=== PATIENT | female | born 1955 | race African-American/Black ===

== ENCOUNTER 2019-04-27 12:41 | Emergency (ER) | payer OTHER ==
[~2019-04-27] VITALS: Ht 154.9 cm; Wt 77.1 kg
[2019-04-27 13:22] LABS: ABSOLUTE NEUTROPHILS 4.2 thou/uL (1.4-8.2); HEMATOCRIT 48.3 % (37.0-47.0); HEMOGLOBIN 16.5 gm/dL (12.0-15.0); LYMPHOCYTES 26.2 % (24.0-44.0); MCH 30.6 pg (26.0-34.0); MCHC 34.2 g/dL (28.0-37.0); MCV 89.3 fL (80.0-100.0); MONOCYTES 3.7 % (1.0-8.0); PLATELET COUNT 257 thou/uL (150-400); POLYS 68.1 % (36.0-66.0); RDW 14.3 % (10.5-14.5); WBC 6.2 thou/uL (4.0-11.0)
[2019-04-27 13:30] LABS: CALCIUM 10.3 mg/dL (8.5-10.1); POTASSIUM 4.1 mmol/L (3.5-5.1)
[2019-04-27 13:36] LABS: ALBUMIN 4.2 g/dL (3.4-5.0); TOTAL BILIRUBIN 0.5 mg/dL (<0.1-1.0); TOTAL PROTEIN 8.8 g/dL (6.4-8.2)
[2019-04-27] MEDS ORDERED: XANAX1 MG PO (15:11)
[2019-04-27] MEDS ORDERED: PAXIL10 MG PO (15:11)
[2019-04-27] MEDS ORDERED: METFORMIN HCL500 MG PO (15:11)
[2019-04-27] MEDS ORDERED: LISINOPRIL20 MG PO (15:12)
[2019-04-27 15:14] LABS: URINE BLOOD NEGATIVE (Negative); URINE CLARITY CLEAR; URINE COLOR YELLOW; URINE GLUCOSE-RANDOM* NEGATIVE (Negative); URINE KETONES TRACE (Negative); URINE LEUKOCYTES-REFLEX NEGATIVE (Negative); URINE NITRITE-REFLEX NEGATIVE (Negative); URINE PROTEIN (DIPSTICK) 3+ (Negative); URINE SPECIFIC GRAVITY >= 1.030 (1.005-1.035)
[2019-04-27 15:18] LABS: ICTOTEST (BILI CONFIRMATORY) Negative (Negative); URINE BILIRUBIN NEGATIVE (Negative)
[2019-04-27 15:21] LABS: AMP/METHAMP Negative (Negative); BARBITURATES Negative (Negative); BENZODIAZEPINES Negative (Negative); COCAINE Negative (Negative); METHADONE Negative (Negative); OPIATES Negative (Negative); PCP Negative (Negative)
[2019-04-27 15:26] LABS: SQUAMOUS >10 Many /LPF (0-3)
[2019-04-27 15:27] LABS: AMORPHOUS URATES Moderate /LPF (None Seen); BACTERIA-REFLEX 1-9 Few /HPF (None Seen); CASTS None Seen /LPF (None Seen); URINE RBC None Seen /HPF (0-2); URINE WBC-REFLEX 0-5 Rare /HPF (0-5)
[2019-04-27] MEDS ORDERED: VISTARIL 25 MG25 M1 PO (19:51)
[2019-04-27 20:53] VITALS: BP 147/88
--- NOTE | 2019-04-28 08:34 | EKG ---
[address] [address] ELECTROCARDIOGRAM REPORT Name: TRENT ARZATE [facility] [id number] Admission: 04/27/19 Attend Phys: Discharge: 04/27/19 Date of : 55 Report #: [id number] THIS REPORT FOR: //name// [facility] ED Test Date: 2019-04-27 Test Time: 13:16:19 Pat Name: TRENT ARZATE Department: Room: Gender: F Exchange Clerk: JOIE : 1955 Requested By: Taylor Abarca Order Number: [id number] MD: Moises Driver Measurements Intervals [place] Rate: 80 P: 69 GA: 165 QRS: -13 QRSD: 88 T: 51 QT: 393 QTc: 454 Interpretive Statements Sinus rhythm Abnormal R-wave progression, late transition No previous ECG available for comparison Electronically Signed On 04-28-2019 8:33:52 CDT by Moises Driver [email or web address] <ELECTRONICALLY SIGNED> By: Moises Driver MD 04/28/19 0833 1316 1316 MD DONITA Huggins
== END 2019-04-27 20:54 | disposition home or self-care (01) ==
LOC: ER 12:41
PROVIDERS: Nurse Practitioner Family
DX: F20.9 Schizophrenia, unspecified (principal); G47.00 Insomnia, unspecified; F41.9 Anxiety disorder, unspecified; F29 Unspecified psychosis not due to a substance or known physiological condition; F31.9 Bipolar disorder, unspecified; E11.9 Type 2 diabetes mellitus without complications; I10 Essential (primary) hypertension; F17.210 Nicotine dependence, cigarettes, uncomplicated; Z91.041 Radiographic dye allergy status; Z88.0 Allergy status to penicillin; Z88.5 Allergy status to narcotic agent

== ENCOUNTER 2020-04-03 16:32 | Inpatient (IN) | payer OTHER ==
[~2020-04-03] VITALS: Ht 154.9 cm; Wt 67.7 kg
[~2020-04-03 16:32] MED LIST: LISINOPRIL20 MG PO; METFORMIN HCL500 MG PO; PAXIL10 MG PO; VISTARIL 25 MG25 M1 PO; XANAX1 MG PO
[2020-04-03 16:40] VITALS: BP 129/71
--- NOTE | 2020-04-03 17:05 | NUR ---
REPORT RECEIVED FROM ELAINE FELICIANO WHO IS WITH [facility] AND IS PATIENT'S THERAPIST. ELAINE REPORTS THAT PATIENT IS CURRENTLY IN A PARTIAL HOSPITALIZATION PROGRAM FOR MOOD STABILTY, MEDICATION MGMT, THERAPY ETC. ELAINE REPORTS THAT PT WAS NOT ATTENDING THE PROGRAM SET UP AND PT CALLED IN TODAY REPORTING SHE IS SUICIDAL AND WANTS TO STAB HERSELF OR SLIT HER WRISTS. PAST SUICIDE ATTEMPTS. ELAINE REPORTS THAT PT'S MOTHER IS CURRENTLY IN THE HOSPITAL AND PT SISTER RECENTLY WELL BROTHER IN LAW WITHIN THE LAST 2 WKS. PT REPORTS SHE HAS NOT SLEPT IN SEVERAL DAYS AND HAS NOT TAKEN ANY MEDICATIONS FOR SEVERAL DAYS STATING SHE CANT FIND HER MEDS. ELAINE STATES IF ANY FURTHER QUESTIONS WE CAN CALL HER IMPLEMENTATION MANAGER AT [facility] AT [phone]. PT GIVES CONSENT TO CALL HER COUSIN JOSE BOONE [phone].
[2020-04-03 17:28] LABS: ABSOLUTE NEUTROPHILS 2.9 thou/uL (1.4-8.2); BASOPHILS 0.6 % (0.0-2.0); EOSINOPHILS 1.5 % (0.0-3.0); HEMATOCRIT 49.3 % (37.0-47.0); HEMOGLOBIN 16.6 gm/dL (12.0-15.0); LYMPHOCYTES 49.8 % (24.0-44.0); MCH 29.8 pg (26.0-34.0); MCHC 33.7 g/dL (28.0-37.0); MCV 88.5 fL (80.0-100.0); MONOCYTES 4.8 % (1.0-8.0); PLATELET COUNT 201 thou/uL (150-400); POLYS 43.3 % (36.0-66.0); RBC 5.57 mil/uL (4.20-5.00); RDW 14.8 % (10.5-14.5); WBC 6.7 thou/uL (4.0-11.0)
[2020-04-03 17:51] LABS: ALBUMIN 3.7 g/dL (3.4-5.0); ANION GAP 10 mmol/L (7-16); BUN 15 mg/dL (7-18); CALCIUM 9.6 mg/dL (8.5-10.1); CHLORIDE 102 mmol/L (98-107); CO2 25 mmol/L (21-32); CREATININE 0.8 mg/dL (0.6-1.0); GLUCOSE 120 mg/dL (74-106); POTASSIUM 3.9 mmol/L (3.5-5.1); SGOT 16 U/L (15-37); SGPT 21 U/L (30-65); SODIUM 137 mmol/L (136-145); TOTAL BILIRUBIN 0.4 mg/dL (0.2-1.0); TOTAL PROTEIN 8.2 g/dL (6.4-8.2)
[2020-04-03 17:56] LABS: URINE BILIRUBIN NEGATIVE (Negative); URINE BLOOD NEGATIVE (Negative); URINE CLARITY CLEAR; URINE COLOR YELLOW; URINE GLUCOSE-RANDOM* NEGATIVE (Negative); URINE KETONES NEGATIVE (Negative); URINE LEUKOCYTES-REFLEX NEGATIVE (Negative); URINE NITRITE-REFLEX NEGATIVE (Negative); URINE PROTEIN (DIPSTICK) NEGATIVE (Negative); URINE SPECIFIC GRAVITY <= 1.005 (1.005-1.035); URINE UROBILINOGEN 0.2 E.U./dl (0.2-1.0)
[2020-04-03 18:02] LABS: SALICYLATE 5.3 mg/dL (2.8-20.0)
[2020-04-03 18:03] LABS: AMP/METHAMP Negative (Negative); BARBITURATES Negative (Negative); BENZODIAZEPINES POSITIVE (Negative); COCAINE Negative (Negative); METHADONE Negative (Negative); OPIATES Negative (Negative); PCP Negative (Negative)
--- NOTE | 2020-04-03 20:20 | NUR ---
PT STATING SHE WANTS TO LEAVE SHE'S ANXIOUS AND FEARED THAT SHE'S BEING DISRESPECTED IN THE HOSPITAL. PT UNABLE TO GIVE DETAILED EXPLANATION ON ACTS OF DISRESPECT. MACHINE STEMMER MADE PT AWARE THAT SHE'S UNABLE TO LEAVE AT THIS TIME A RESULT OF THOUGHTS OF WANTING TO HURTSELF, PT ITCHING AGGRESSIVELY ON LEFT HAND, STATING "I'M ANXIOUS AND CAN'T SEEM TO CALM MYSELF". ERP NOTIFIED AND NEW ORDER ATIVAN 1MG PO GIVEN. SITTER AT BEDSIDE.
--- NOTE | 2020-04-03 20:22 | NUR ---
PT CALLED INQUIRING ABOUT HER HOSPITALIZATION, FOREST FIRE[employer]HTER UPDATED PT THAT RESULT ON COVID TEST IS STILL PENDING AND WHEN RECIEVED, PT WILL BE ADMITTED ON [facility]. PT LEYDA, REQUESTED FOR FOOD, LUNCH BOX GIVEN.
--- NOTE | 2020-04-04 01:07 | NUR ---
65 y.o. female admitted to the unit this date with passive/vague suicidal ideation. Patient reports Hx of Bipolar DO, Schizophrenia, Depression, and PTSD. Also has Hx of HTN, and diabetes. Calm and cooperative with admission. States her sister and her brother in law both in the past couple of weeks. States she hasn't slept in 10 days and has started to hallucinate. Has fleeting thoughts that she just doesn't want to go on anymore, and would be better off . Denies any plan or intent. Says she has therapy sessions via telehealth through [employer]. Would like PCP and family member notified of her admission. Has superfiscial scratches on the backs of both hands from a "nervous habit". Takes Xanax and Paxil. Main goal is to get sleep in a safe place.
[2020-04-04 01:14] VITALS: BP 145/73
[2020-04-04 07:53] VITALS: BP 141/66
--- NOTE | 2020-04-04 08:32 | EKG ---
[facility] [place] [address] ELECTROCARDIOGRAM REPORT Name: TRENT ARZATE Room #: [facility] ADM IN M.R.#: [id number] Admission: 04/03/20 Attend Phys: Gianfranco Acosta DO Discharge: Date of : 55 Report #: [id number] THIS REPORT FOR: cc: DENIA LUI MD, TRICIA MD Lundgren,Andrea Kaufman MD [facility] ~ THIS REPORT FOR: //name// [facility] ED Test Date: 2020-04-03 Test Time: 17:35:13 Pat Name: TRENT ARZATE Department: Room: [facility] Gender: F Studio Engineer: : 1955 Requested By: Willy Maldonado Order Number: [id number] MD: Andrea Porras Measurements Intervals [place] Rate: 82 P: 54 MA: 175 QRS: -23 QRSD: 84 T: 30 QT: 379 QTc: 443 Interpretive Statements Sinus rhythm Borderline left axis deviation Compared to ECG 04/27/2019 13:16:19 No significant changes Electronically Signed On 04-04-2020 8:32:12 CDT by Andrea Porras [email or web address] <ELECTRONICALLY SIGNED> By: Andrea Porras MD, [facility] 04/04/20 0832 1735 1735 Andrea Porras MD, [facility] /EPI
[2020-04-04 10:21] VITALS: BP 141/66
--- NOTE | 2020-04-04 12:14 | NUR ---
1155 RESUMMED CARE FROM OVERNIGHT SHIFT THIS AM, PATIENT HAS ANXIETY AND DEPRESSION DUE TO SEVERAL DEATHS IN HER FAMILY. PATIENT DENIES SI/HI/AH/VH AT PRESENT. PATIENT HAS SCRATCHES ON BOTH TOP OF HANDS, PATIENT STATES WHEN SHE GETS ANXIOUS SHE SCRATCHES HERSELF. PATIENTS ABDOMEN SOFT ROUND BOWEL SOUNDS PRESENT. PATIENTS LUNGS CLEAR PATIENT STATES SHE MADE THE SI STATEMENTS DUE TO SEVERAL FAMILY DEATHS IN 2 WEEK SPAN. PATIENT IS WORRIED ABOUT HER MOM WHO HAD A STROKE AND HEART ATTACK. PATIENT IS VERY PLEASANT MEET WITH ROLAN HOLLY THIS AM AND DIETARY. PATIENT DID ATTEND GROUP AND IS QUIET AND COOPERATIVE WILL CONINUE TO MONITOR PATIENT FOR SAFETY AND BEHAVIORS.
[2020-04-04 19:17] VITALS: BP 106/62
--- NOTE | 2020-04-04 19:21 | NUR ---
Care of patient assumed at 1915. Patient is sitting calmly in day room. Pleasant and cooperative. HS, LS, BS normal. Denies pain. Denies SI/HI. A/O x 4. Says she realizes she doesn't really belong here, and that the millieu is just increasing her anxiety. Dressing to back of left hand changed (healing well). Heads to her room at 2200 and requests ANAYA Harris. This nurse tells her that it will be just a bit as an admission is in progress. Patient accepts this and goes to her room. At 2300, when this nurse goes to see if she still needs it, she is sleeping.
[2020-04-05 06:00] LABS: HEMATOCRIT 44.1 % (37.0-47.0); HEMOGLOBIN 14.8 gm/dL (12.0-15.0)
[2020-04-05 07:17] VITALS: BP 142/72
[2020-04-05 10:44] VITALS: BP 142/72
--- NOTE | 2020-04-05 10:49 | NUR ---
LINDA received a vm from Hanane Bernal, therapist with [facility], asking SW to contact her before pt is due to discharge to discuss care. LINDA contacted Hanane who told LINDA that she sent pt to the hospital because pt had a plan and intent on suicide; she was to utilize knives and she said pt had knives in her hand. LINDA explained that [facility] did not receive affidavits from her nor the police and so did not have grounds to deem her a safety risk at the time of admission. Hanane explained that she spoke to ED staff about her affidavit and was told they would call her back if they needed it. They never did. LINDA advised that any time she asks a patient to be admitted to send an affidavit. LINDA explained that at this time pt does not pose as suicidal. Hanane confirmed that pt has experienced 2 family deaths and her mother is very ill at this time. Pt attends PHP program with [facility]. Her first group session is tomorrow at 1230 and then her therapy appt is at 1430. Hanane said she will email Dr. Alexander that pt needs a psych appt. She also mentioned pt does not like seeing Dr. Alexander because he will not prescibe xanax. LINDA provided an update to Dr. Acosta concerning pt.
--- NOTE | 2020-04-05 11:33 | NUR ---
SW D/C NOTE SW faxed discharge docs to [facility]. No other needs for SW team to address at this time.
--- NOTE | 2020-04-05 13:29 | NUR ---
DISCHARGE INSTRUCTIONS REVIEWED WITH PATIENT INCLUDING F/U RECCOMDATIONS,DC MEDICATIONS AND RX CALLED TO PHARMACY BY DR. GIPSON. PT STATES UNDERSTANDING AND DENIES QUESTIONS/CONCERNS AT TIME OF DC. REQUESTED AND RECEIVED XANAX 1MG PO PRN AT APPROX. 1145 PRIOR TO DC RATING ANXIETY 7/10 D/T PENDING DC. DENIES C/O PAIN/DISCOMFORT AT TIME OF DC. DENIES SI/SH/HI. [facility] APPROX [facility]20 [facility] AT TIME OF DC TO [facility] VALU[employer]LES ENVELOPE X2 AT SECURITY PRIOR TO BOARDING TAXI ARRANGED BY FOR DC.
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
== END 2020-04-05 13:23 | disposition home or self-care (01) | DRG 881 ==
LOC: ER 16:32 → SBH 23:09 → EROBS 23:09 → SBH 23:47
PROVIDERS: Emergency Medicine; ADMIT Psychiatry & Neurology Psychiatry; ATTEND Psychiatry & Neurology Psychiatry
DX: F32.9 Major depressive disorder, single episode, unspecified (principal); R45.851 Suicidal ideations; F41.9 Anxiety disorder, unspecified; E11.9 Type 2 diabetes mellitus without complications; I10 Essential (primary) hypertension; Z60.2 Problems related to living alone; F43.10 Post-traumatic stress disorder, unspecified; F20.0 Paranoid schizophrenia; F43.21 Adjustment disorder with depressed mood; R45.850 Homicidal ideations; Z20.828 Contact with and (suspected) exposure to other viral communicable diseases; Z88.0 Allergy status to penicillin; Z88.6 Allergy status to analgesic agent; Z91.041 Radiographic dye allergy status; Z82.49 Family history of ischemic heart disease and other diseases of the circulatory system; Z83.3 Family history of diabetes mellitus
CPT/HCPCS: 10880

== ENCOUNTER 2020-08-09 12:38 | Emergency (ER) | payer OTHER ==
[~2020-08-09] VITALS: Ht 154.9 cm; Wt 68.0 kg
[~2020-08-09 12:38] MED LIST changes: -LISINOPRIL20 MG PO; +ZESTRIL40 MG PO
[2020-08-09 12:40] VITALS: BP 215/126
[2020-08-09] MEDS ORDERED: ATORVASTATIN CA20 MG PO (13:03)
[2020-08-09] MEDS ORDERED: ALPRAZOLAM2 MG PO (13:03)
[2020-08-09 14:39] LABS: ABSOLUTE NEUTROPHILS 3.1 thou/uL (1.4-8.2); BASOPHILS 0.5 % (0.0-2.0); HEMATOCRIT 41.4 % (37.0-47.0); HEMOGLOBIN 14.2 gm/dL (12.0-15.0); LYMPHOCYTES 50.1 % (24.0-44.0); MCH 30.8 pg (26.0-34.0); MCHC 34.2 g/dL (28.0-37.0); MCV 90.1 fL (80.0-100.0); MONOCYTES 4.4 % (1.0-8.0); RDW 14.6 % (10.5-14.5); WBC 7.3 thou/uL (4.0-11.0)
[2020-08-09 14:48] LABS: ANION GAP 8 mmol/L (7-16); BUN 10 mg/dL (7-18); CALCIUM 9.5 mg/dL (8.5-10.1); CHLORIDE 104 mmol/L (98-107); CO2 30 mmol/L (21-32); CREATININE 0.7 mg/dL (0.6-1.0); GLUCOSE 102 mg/dL (74-106); POTASSIUM 3.6 mmol/L (3.5-5.1); SODIUM 142 mmol/L (136-145)
[2020-08-09 14:53] LABS: ALBUMIN 3.5 g/dL (3.4-5.0); SALICYLATE < 2.8 mg/dL (2.8-20.0); SGOT 14 U/L (15-37); SGPT 26 U/L (30-65); TOTAL BILIRUBIN 0.4 mg/dL (0.2-1.0); TOTAL PROTEIN 7.3 g/dL (6.4-8.2)
[2020-08-09 15:00] LABS: PLATELET COUNT 206 thou/uL (150-400)
[2020-08-10 07:56] VITALS: BP 140/78
[2020-08-10] MEDS ORDERED: ZYPREXA 5 MG TAB5 MG PO (11:40)
[2020-08-10] MEDS ORDERED: METFORMIN HCL500 MG PO (12:12)
== END 2020-08-10 07:55 ==
LOC: ER 12:38 → EROBS 17:08 → ER 08-10 07:55
PROVIDERS: Physician Assistant
DX: F32.9 Major depressive disorder, single episode, unspecified (principal); F20.9 Schizophrenia, unspecified; I10 Essential (primary) hypertension; E11.9 Type 2 diabetes mellitus without complications; F17.210 Nicotine dependence, cigarettes, uncomplicated; Z79.899 Other long term (current) drug therapy; Z88.0 Allergy status to penicillin; Z88.5 Allergy status to narcotic agent; Z91.041 Radiographic dye allergy status

== ENCOUNTER 2020-08-09 15:16 | Inpatient (IN) | payer OTHER ==
[~2020-08-09] VITALS: Ht 154.9 cm; Wt 72.7 kg
[~2020-08-09 15:16] MED LIST changes: +ALPRAZOLAM2 MG PO; +ATORVASTATIN CA20 MG PO
[2020-08-10 10:15] VITALS: BP 126/71
--- NOTE | 2020-08-10 11:09 | NUR ---
PT. ARRIVED ON THE UNIT ABOUT 0700 THIS MORNING. SHE WAS PLEASANT AND COOPERATIVE WITH ADMISSION. SHE STATES SHE IS DIABETIC AND ON A CARB CONTROLLED DIET. WILL GET BLOOD SUGARS WE CAN. SHE STATES SHE IS UNCERTAIN WHY SHE IS HERE. SHE DID MENTION OTHERS WAS AFRAID OF HER BEHAVIORS AND MAY HARM HERSELF. SHE DENIES THIS. SHE DOES STATE SHE HAS LOST A [id number] AND SISTER RECENTLY. SHE IS UPSET WITH THEIR PASSING. SHE STATES SHE HAD A APPENDETOMY ABOUT 4 YEARS AGO, HYSTERECTOMY >10 YEARS AGO A BREST REDUCTION ABOUT 10 YEARS AGO. SHE STATES SHE WAS ADMITTED TO RESEARCH PSYCH. IN THE PAST. SHE DENIES HAVING HOBBIES OTHER THAN WATCHING YV AND WORKING WITH PLANTS.
[2020-08-10] MEDS ORDERED: ZYPREXA 5 MG TAB5 MG PO (11:40)
[2020-08-10] MEDS ORDERED: METFORMIN HCL500 MG PO (12:12)
--- NOTE | 2020-08-10 17:31 | NUR ---
LINDA was able to speak with Pt's skilled nursing case manager, Rosalee Francis [phone]. Rosalee was informed of the recommendation for IOP for the Pt. Rosalee stated she would send and internal referral for the Pt to begin the program. Rosalee informed the Pt reported not eating or sleeping in the last week or so. Also the Pt recently loss her sister. Rosalee confirmed the Pt is in therapy with Deo Vargas ( [phone]) and sees Dr. Charlie Bonilla for psychiatry. LINDA will continue to follow
--- NOTE | 2020-08-10 17:36 | NUR ---
DEEPAK spoke with Cecelia Lyn, , at [facility] program. Cecelia informed the Pt would need to call on Thursday (08/14/2020) to complete the intake assessment. Deepak attempted to schedule a follow up appt with Dr. Bonilla's office. DEEPAK was informed Pt would need to call after d/c and schedule a follow up appt. Pt meets with her Therapist Deo Hankins on 08/14/2020 via phone call. Pt scheduled for d/c 08/13/2020 @ 1300. Pt will be transported home via taxi
[2020-08-10 19:45] VITALS: BP 148/68
--- NOTE | 2020-08-11 05:31 | NUR ---
ASSUMED CARE OF PT AT 1900. PT IS A/O X4 AND IS UP AD TE. PLEASANT AND COOPERATIVE WITH ALL CARES. STATES SHE IS "READY TO GET OUT OF HERE ALREADY". DENIES ANY PAIN OR DISCOMFORT. ALSO DENIES ANY SI,HI,AVH. NO EMOTIONAL OUTBURSTS NOTED. PT IS CURRENTLY LYING IN HER BED AND APPEARS TO BE SLEEPING. VSS. AFEBRILE. WILL CONTINUE TO MONITOR.
[2020-08-11 07:45] VITALS: BP 136/74
[2020-08-11 20:20] VITALS: BP 147/83
--- NOTE | 2020-08-11 20:32 | NUR ---
Alert and orientated X 4. Denies SI/HI. Sad, flat affect. Ambulates with regular, steady gait. Breath sounds clear. Reg HR auscultated. Color pink with brisk capillary refill and palpable peripheral pulses. Independent with voiding. Active bowel sounds over soft, rounded abdomen. No issues t/o day--just wants to go home.
--- NOTE | 2020-08-12 04:37 | NUR ---
ASSUMED CARE OF PT AT 1900. PT IS A/O X4 AND IS UP AD TE. PLEASANT AND COOPERATIVE. DENIES SI/HI/AVH. VSS. AT THIS TIME PT IS LYING IN HER BED AND APPEARS TO BE SLEEPING. WILL CONTINUE TO MONITOR.
[2020-08-12 11:26] VITALS: BP 146/67
--- NOTE | 2020-08-12 14:14 | NUR ---
PATIENT CARE ASSUMED AT 0700 - ALERT AND ORIENTED X 4 - IN DINING [place] MOST OF THE DAY. MAKES NEEDS KNOWN. STATED HAD SEVERAL LOOSE BOWEL MOVEMENTS YESTERDAY AND CALLED DR. WOODS TO PLACE IMMODIUM PRN. PATIENT HAS NOT HAD ANY TODAY. MEDICATION COMPLIANT. STATED SLEPT WELL NO THOUGHTS OF S/I CURRENTLY. FEELS MEDICATIONS HAS BEEN BENEFICIAL. RETIRED TO HER ROOM AFTER LUNCH AND RESTED.
[2020-08-12 19:59] VITALS: BP 151/70
[2020-08-12 21:15] VITALS: BP 151/70
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
[2020-08-13 07:47] VITALS: BP 142/70
[2020-08-13 10:56] VITALS: BP 142/70
--- NOTE | 2020-08-13 11:03 | NUR ---
ASSUMED CARE AT 0700 TODAY. PT. PLEASANT AND COOPERATIVE WITH STAFF/PEERS. SHE TOOK HER MEDICATIONS WHOLE WITHOUT PROBLEMS NOTED. SHE IS EATING WELL WITHOUT PROBLEMS NOTED. SHE IS TO D/C TODAY AT 1300. SHE STATES SHE IS READY. HER BELONGINGS HAVE BEEN GATHERED.
[2020-08-13] MEDS ORDERED: ZYPREXA 5 MG TAB5 M2 PO (12:32)
[2020-08-13] MEDS ORDERED: PAXIL 20 MG TAB20 M1 PO (12:32)
[2020-08-13] MEDS ORDERED: GLUCOPHAGE1000 MG PO (12:34)
--- NOTE | 2020-08-14 23:03 | H ---
[facility] [address] [place] [address] HISTORY AND PHYSICAL Name: TRENT ARZATE Room #: 526B-B DIS IN M.R.#: [id number] Admission: 08/10/20 Attend Phys: Gianfranco Acosta DO Discharge: 08/13/20 Date of : 55 Report #: [id number] THIS REPORT FOR: cc: DENIA LUI MD, TRICIA MD Kerstein,Gianfranco Kaufman DO ~ DATE OF SERVICE: 08/10/2020 INITIAL PSYCHIATRIC EVALUATION ATTENDING PSYCHIATRIST: Gianfranco Acosta DO. RESEARCH DIRECTOR: Roly Evans MD REASON FOR ADMISSION: The patient was brought in by law enforcement from [place], [place]. HISTORY OF PRESENT ILLNESS: Apparently, they were dispatched to her address in regards to alleged suicidal behavior. Upon arrival, they made contact with the patient, who stated the following: She had been up for 3 days. She has not been eating. She lost her sister and ehyoexu-jf-vac and she is struggling. She has been diagnosed with bipolar, schizophrenia, PTSD. She has a therapist and a doctor with [facility]. She lives alone and she does not want to reach out to her family because they do not help her. The holidays are hard for her and she sees why people commit suicide. When she is having an episode, she scratches her hands, which causes injury and she walks from room to room and she hears voices. She reached out for help because it is better than "picking me up from the ground." The patient gestured towards the balcony window. During my conversation with her, she appeared to be calm and cooperative. The patient's responses to my questions were delayed, appeared to be slightly confused. The patient further stated she feels like the brandon are closing in and her mind goes like a radio. She does not want us to find her . She was transported by the medics to [facility]. This patient is known to me from prior psychiatric admission here at [facility] back in 03/2020. At that time, circumstances were a little bit different where she had suicidal behaviors. She had a telephone interview with her therapist from [facility] and they requested a welfare check. The patient was found compulsively scratching her left hand and cuts herself and at that time and always she allegedly reports she wants to stab herself or slit her wrists. The patient currently has a therapist named Deo, case liner Rosalee, has a psychiatrist, Dr. Seamus Bonilla in [facility]. Psychiatric includes overnight at [facility]. Prior to admission in 03/2020, she had not slept in a number of days. At that time, she was having visual and auditory hallucinations. She denies that today. Interestingly, in 03/2020, she reported her sister and gmdvqzy-yn-bnz of ruptured aneurysm. She is stating her sister and pqylmuh-nt-gzt again, so [facility] [address] [place] [address] HISTORY AND PHYSICAL Name: TRENT ARZATE Room #: 526B-B LILIANA IN Paul#: [id number] Admission: 08/10/20 Attend Phys: Gianfranco Acosta, DO Discharge: 08/13/20 Date of : 55 Report #: [id number] it is unclear to me at this point if it is the same sister and gheztka-hn-iqm or different. Her mother lives in the community in the area in [place]. Back in 03/2020, she was concerned her mother is on hospice. She is not now. The patient reports she is in grief. She is not suicidal, not depressed. ADDITIONAL PSYCHIATRIC HISTORY: Bipolar disorder. She calls herself bipolar, schizophrenic. I just think that she has been diagnosed separately PTSD, anxiety disorder, significant trauma history, but I believe this dates back to adolescence. MEDICAL PROBLEMS: Diabetes mellitus and hypertension. CURRENT MEDICATIONS: Paroxetine 20 mg daily, alprazolam 1 mg 3 times a day, metformin 500 mg b.i.d., lisinopril 40 mg daily. ALLERGIES: TO CONTRAST DYE, MORPHINE, PENICILLIN. SOCIAL HISTORY: Twelfth grade, did not graduate. She is on social security disability, does not sound like she has worked recently. Denied alcohol or recreational drug use. She smokes a half pack per day. She does not want to pursue cessation at this time, which I can understand. The patient has never been , no children. I do not believe she has a DPOA. REVIEW OF SYSTEMS: From the ER yesterday: CONSTITUTIONAL: Denies fever, chills, malaise, unexplained weight change. EYES: Denies eye pain, visual change or discharge. HENT: Denies hearing changes, ear drainage, infections, ear pain, neck pain or neck stiffness. RESPIRATORY: Denies cough, shortness of breath, hemoptysis or respiratory distress. CARDIOVASCULAR: Denies chest pain, chest pain with exertion or edema. GASTROINTESTINAL: Denies abdominal pain, nausea, vomiting or diarrhea. GENITOURINARY: Denies burning, frequency or dysuria. MUSCULOSKELETAL: Denies back pain, joint pain, muscle weakness or myalgias. SKIN: Denies rash. NEUROLOGIC: Denies weakness, loss of consciousness. PSYCHIATRIC: Reports grief, depression, sadness. Otherwise, 10-point review of systems negative. Weight 60.04 kilos. Physical exam grossly normal. LABORATORY DATA: Done in the ER: Sodium 140, potassium 3.6, chloride 104, bicarbonate 30, anion gap 8, BUN 10, creatinine 0.7, estimated GFR is around 100, calcium 9.5, total bilirubin is 0.4, AST 14, ALT 26, alkaline phosphatase 83, total protein 7.3, albumin 3.5. White count 7.3, H and H 14.2 and 41.4, [facility] [address] [place] [address] HISTORY AND PHYSICAL Name: TRENT ARZATE Room #: [address] [place] [address] IN ..#: [id number] Admission: 08/10/20 Attend Phys: Gianfranco Acosta, Discharge: 08/13/20 Date of : 55 Report #: [id number] platelet count 206. Differential only showed a high lymphocyte percentage of 50.1. COVID-19 is negative. Salicylate less than 2.8. ____ less than 2, alcohol less than 10. It looks like they just did a rhythm strip, no 12-lead. PHYSICAL EXAMINATION: VITAL SIGNS: Today, temperature 36.1, pulse 76, respirations 18, BP 126/71, O2 sat 96%. GENERAL: Normal gait and station, wearing a cap. BMI is 30.3. MENTAL STATUS EXAMINATION: This is a well-developed, black female, appearing stated age. Attention fair. Concentration fair. Speech slow, low volume. Thought process is linear and goal directed. Thought content focused on getting help from [facility]. No psychomotor agitation, some psychomotor retardation. Denied suicidal intent or plan. Some helplessness. Denied hopelessness. Denied homicidal intent or plan. No auditory, visual, or tactile hallucinations. Memory not formally tested today. Insight fair to limited. Judgment fair. Fund of knowledge below average range. FORMULATION: A 65-year-old black female readmitted today. DIAGNOSES: Major depressive disorder, recurrent, severe degree; complicated grief, history of psychosis not currently. She self-reports as "bipolar schizophrenic." PLAN: The patient is admitted to Geriatric psychiatry unit. She is voluntary. Evaluate, stabilize. Hospitalist consultation. Medications ordered are as follows: Atorvastatin 20 mg oral daily, olanzapine 10 mg p.o. at bedtime, metformin 1000 mg p.o. b.i.d. We will do blood sugars daily. Lisinopril 40 mg p.o. daily, hold if systolic blood pressure less than 100. I increased the paroxetine to 40 mg p.o. daily, alprazolam is 1 mg p.o. q. 8 hours p.r.n. for severe anxiety. Otherwise, house PRNs. STRENGTHS: She is insured. She has a psychiatrist, therapist and case liner, place to live. WEAKNESSES: Limited family support, effects from COVID-19, minimal social support. ESTIMATED LENGTH OF STAY: 5-10 days. Approximately 60 minutes were spent on this, greater than 50% was spent on review of records, coordination of care. <ELECTRONICALLY SIGNED> By: Gianfranco Acosta DO 08/14/20 2303 1343 1421 Gianfranco Acosta DO /nt
== END 2020-08-13 12:03 | disposition home or self-care (01) | DRG 885 ==
LOC: SBH → EROBS 08-10 06:11 → SBH 08-10 06:11
PROVIDERS: ADMIT Psychiatry & Neurology Psychiatry; ATTEND Psychiatry & Neurology Psychiatry
DX: F33.3 Major depressive disorder, recurrent, severe with psychotic symptoms (principal); R45.851 Suicidal ideations; F43.21 Adjustment disorder with depressed mood; F43.10 Post-traumatic stress disorder, unspecified; I10 Essential (primary) hypertension; E11.9 Type 2 diabetes mellitus without complications; G47.00 Insomnia, unspecified; Z88.5 Allergy status to narcotic agent; Z88.0 Allergy status to penicillin; Z91.041 Radiographic dye allergy status
CPT/HCPCS: 10880

== ENCOUNTER 2020-10-18 08:03 | Emergency (ER) | payer OTHER ==
[~2020-10-18] VITALS: Ht 154.9 cm; Wt 68.0 kg
[~2020-10-18 08:03] MED LIST changes: +GLUCOPHAGE1000 MG PO; +PAXIL 20 MG TAB20 M1 PO; +ZYPREXA 5 MG TAB5 M2 PO; +ZYPREXA 5 MG TAB5 MG PO
[2020-10-18 10:55] VITALS: BP 178/96
[2020-10-18 10:57] LABS: URINE BILIRUBIN NEGATIVE (Negative); URINE BLOOD TRACE (Negative); URINE CLARITY CLEAR; URINE COLOR YELLOW; URINE GLUCOSE-RANDOM* NEGATIVE (Negative); URINE KETONES NEGATIVE (Negative); URINE LEUKOCYTES-REFLEX NEGATIVE (Negative); URINE NITRITE-REFLEX NEGATIVE (Negative); URINE PROTEIN (DIPSTICK) 2+ (Negative); URINE UROBILINOGEN 0.2 E.U./dl (0.2-1.0)
[2020-10-18 11:34] LABS: ABSOLUTE NEUTROPHILS 7.1 thou/uL (1.4-8.2); EOSINOPHILS 0.4 % (0.0-3.0); HEMATOCRIT 48.4 % (37.0-47.0); HEMOGLOBIN 15.9 gm/dL (12.0-15.0); LYMPHOCYTES 20.2 % (24.0-44.0); MCHC 32.8 g/dL (28.0-37.0); MCV 91.3 fL (80.0-100.0); MONOCYTES 3.3 % (1.0-8.0); PLATELET COUNT 252 thou/uL (150-400); POLYS 75.1 % (36.0-66.0); RBC 5.31 mil/uL (4.20-5.00); RDW 14.2 % (10.5-14.5); WBC 9.4 thou/uL (4.0-11.0)
[2020-10-18 11:38] LABS: CALCIUM 10.2 mg/dL (8.5-10.1); POTASSIUM 3.5 mmol/L (3.5-5.1)
[2020-10-18 11:44] LABS: ALBUMIN 4.1 g/dL (3.4-5.0); DIRECT BILIRUBIN 0.1 mg/dL (<0.1-0.2); TOTAL BILIRUBIN 0.5 mg/dL (0.2-1.0); TOTAL PROTEIN 8.5 g/dL (6.4-8.2)
[2020-10-18 11:55] LABS: SQUAMOUS 4-10 Moderate /LPF (0-3)
[2020-10-18 11:56] LABS: BACTERIA-REFLEX 1-9 Few /HPF (None Seen); CASTS None Seen /LPF (None Seen); CRYSTALS None Seen /LPF (None Seen); URINE RBC 0-2 Rare /HPF (0-2); URINE WBC-REFLEX 0-5 Rare /HPF (0-5)
[2020-10-18 13:03] LABS: AMP/METHAMP Negative (Negative); BARBITURATES Negative (Negative); BENZODIAZEPINES Negative (Negative); COCAINE Negative (Negative); METHADONE Negative (Negative); OPIATES Negative (Negative); PCP Negative (Negative)
--- NOTE | 2020-10-19 07:05 | EKG ---
[address] [address] ELECTROCARDIOGRAM REPORT Name: HUEYTRENT [facility]: [facility] [id number] Admission: 10/18/20 Attend Phys: Discharge: 10/18/20 Date of : 55 Report #: [id number] [facility] ED Test Date: 2020-10-18 Test Time: 11:13:43 Pat Name: TRENT ARZATE Department: Room: Gender: F Wire Coiler: JCHAIBROOKLYNN : 1955 Requested By: Stephanie Morrison Order Number: [id number] MD: Telly Sterling Measurements Intervals [place] Rate: 80 P: 71 TX: 188 QRS: -20 QRSD: 87 T: 47 QT: 398 QTc: 460 Interpretive Statements Sinus rhythm Borderline left axis deviation Compared to ECG 04/03/2020 17:35:13 No significant changes Electronically Signed On 10-19-2020 7:05:39 DISABILITY HEARING OFFICER by Telly Sterling [email or web address] <ELECTRONICALLY SIGNED> By: Telly Sterling MD, [facility] 10/19/20 0705 1113 1113 Telly Sterling MD, FACC /EPI
== END 2020-10-18 16:47 | disposition short-term general hospital (02) ==
LOC: ER 08:03
PROVIDERS: Emergency Medicine
DX: F31.9 Bipolar disorder, unspecified (principal); I10 Essential (primary) hypertension; E11.9 Type 2 diabetes mellitus without complications; E78.5 Hyperlipidemia, unspecified; F17.210 Nicotine dependence, cigarettes, uncomplicated; Z90.49 Acquired absence of other specified parts of digestive tract; Z79.899 Other long term (current) drug therapy; Z88.0 Allergy status to penicillin; Z88.5 Allergy status to narcotic agent; Z91.041 Radiographic dye allergy status; Z20.822 Contact with and (suspected) exposure to COVID-19

== ENCOUNTER 2020-10-18 14:37 | Inpatient (IN) | payer OTHER ==
[~2020-10-18] VITALS: Ht 157.5 cm; Wt 68.9 kg
[2020-10-18 15:16] VITALS: BP 143/82
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
--- NOTE | 2020-10-18 18:58 | NUR ---
HAS CONTINUED TO TALK LOUDLY TO UNSEEN OTHERS-RESTLESS,PACING. ZYPREXA 5MG GIVEN PO AT 1700 NOW ORDER ALONG WITH XANAX 1MGPOPRN FOR ANXIETY.
[2020-10-18 19:25] VITALS: BP 122/64
[2020-10-18 20:30] VITALS: BP 122/64
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
--- NOTE | 2020-10-19 01:53 | NUR ---
PATIENT UP WANDERING THE HALLS. SHE IS CONFUSED. SHE KEEPS LOOKING FOR A ROOM THAT IS HAVING THE DEMOCRAT THAT HER MOM INVITED HER TOO. SHE IS EASILY REORIENTED AND GOES BACK TO HER ROOM TO BED. SHE CONTINUES TO LAY IN BED AND SPEAK TO THE VOICES SHE HEARS TALKING IN HER MIND. SHE IS RESTLESS STILL AND MANIC. CONTINUING TO MONITOR.
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
[2020-10-19 07:53] VITALS: BP 140/86
[2020-10-19 09:07] VITALS: BP 140/86
--- NOTE | 2020-10-19 09:26 | NUR ---
Assess due to admit to [facility]. Admit with hallucinations, unspecified psychosis. Hx schizophrenia, DM, bipolar. Wts stable over past year per wt records. Eats well. BG elevated 238, will change diet to carb control. On metformin. Low nutrition risk
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
[2020-10-19 20:01] VITALS: BP 138/70
--- NOTE | 2020-10-20 04:38 | NUR ---
Pt. rested quietly during the night when checked on during frequent rounds. She did refuse her hs med (see emar) because she feels it makes her too sleepy. No c/o pain.
[2020-10-20 08:14] VITALS: BP 138/83
[2020-10-20 09:38] VITALS: BP 138/83
--- NOTE | 2020-10-20 15:57 | NUR ---
PATIENT WAS IN BED ASSLEEP WHEN CARE ASSUMED, SHE GOT UP FOR BREAKFAST, APPETITE POOR, CONSUMED ABOUT 25%. MORNING MEDICATION GIVEN PO, WELL TOLERATED. PATIENT LATER INFORMED THIS RN THAT "I THREW UP THE MEDICINE BECAUSE IT MADE BY STOMACH QUEEZEE, BUT I FEEL BETTER NOW". PATIENT CHOOSE NOT EAT LUNCH, REQUESTED TO SOUP, CHICKEN BROTH GIVEN WITH CRACKERS, WELL TOLORATED, NO FURTHER COMPLAIN VOICED. PATIENT DENIES SUICIDAL/HOMICIDAL IDEATION, SHE DENIES AUDITORY/VISUAL HALLUCINATION. PATIENT DENIES HAVING PHYSICAL PAIN. PATIENT PARTICIPATING IN GROUP THERAPY. AFFECT IS FLAT/BLUNTED, MOOD IS DEPRESSED, NO SIGN OF AVUTE DISTRESS NOTED AT THIS TIME, WILL NOMITOR FOR SAFETY.
[2020-10-20 19:33] VITALS: BP 107/48
--- NOTE | 2020-10-21 04:27 | NUR ---
SITTING QUIETLY AT TABLE IN DAYROOM UPON INITIAL ASSESSMENT THIS PM. APPEARS HYPERVIGILANTIN ENVIRONMENT-WATCHING PEERS AND STAFF CLOSELY-DOES ANSWER QUESTIONS ASKED -GUARDED-OFFERING MINIMAL RESPONSES. DENIES PAIN. DENIES ACUTE ANXIETY-DENIES HAVING ANY AUDITORY OR VISUAL HALLUCINATIONS-STATING "THEY ARE ALL GONE-I WANT TO LEAVE TOMORROWI GOT TO PAY SOMW BILLS/TAKE CARE OF STUFF"ASKS MANY QUESTIONS ABOUT MEDS QUESTONING WHY THERE ARE SO MANY-DID RELUCTANTLY TAKE AFTER BEING SHOWN UNOPENED NAMES AND DOSES OF MEDS. DENIES NAUSEA CURRENTLY BUT DOES STATE HAD SOME EARLIER IN DAY AFTER TAKING MEDICATIONS. WAS RECEPTIVE TO TAKING SNACK WITH HS MEDS TO AVOID STOMACH UPSET.REQUESTED AND RECEIVED XANAX 1MG PO PRN AT APPROX 2115. GAIT STEADY WITHOUT ASSISTIVE DEVICES.
[2020-10-21 05:58] LABS: ABSOLUTE NEUTROPHILS 5.5 thou/uL (1.4-8.2); BASOPHILS 0.4 % (0.0-2.0); EOSINOPHILS 1.7 % (0.0-3.0); HEMATOCRIT 45.6 % (37.0-47.0); HEMOGLOBIN 15.2 gm/dL (12.0-15.0); LYMPHOCYTES 32.7 % (24.0-44.0); MCH 29.8 pg (26.0-34.0); MCHC 33.2 g/dL (28.0-37.0); MCV 89.7 fL (80.0-100.0); MONOCYTES 4.4 % (1.0-8.0); PLATELET COUNT 240 thou/uL (150-400); POLYS 60.8 % (36.0-66.0); RBC 5.09 mil/uL (4.20-5.00); RDW 14.5 % (10.5-14.5); WBC 9.1 thou/uL (4.0-11.0)
[2020-10-21 06:46] LABS: ALBUMIN 3.4 g/dL (3.4-5.0); CALCIUM 8.9 mg/dL (8.5-10.1); CREATININE 1.7 mg/dL (0.6-1.0); MAGNESIUM 1.8 mg/dL (1.8-2.4); PHOSPHORUS 3.2 mg/dL (2.5-4.9); POTASSIUM 4.2 mmol/L (3.5-5.1); TOTAL BILIRUBIN 0.5 mg/dL (0.2-1.0); TOTAL PROTEIN 7.1 g/dL (6.4-8.2)
[2020-10-21 08:36] VITALS: BP 99/55
[2020-10-21 10:43] VITALS: BP 124/62
--- NOTE | 2020-10-21 14:11 | NUR ---
PATIENT CARE ASSUMED AT 0700 - OBSERVED SITTING IN DINING HUMPHREY. PATIENT QUIET - GUARDED AND HESITANT WHEN ANSWERING QUESTIONS. AFFECT FLAT AND MOOD DETACHED. MAKES NEEDS KNOWN. STATED HAD NAUSEA YESTERDAY AND TOLD DR. GAONA OF THIS. ADVISED WOULD CHANGE DOSAGES TO SPACED TIMED PERIODS TO AVOID BEING UPSET. ADVISED PATIENT TO EAT PRIOR TO TAKING HER MEDICATIONS. PATIENT STATES NOT HEARING ANY VOICES AND DID NOT OBSERVE ANY INTERNAL STIMULI. PATIENT HAS BEEN UP IN DINING AREA - PARTICIPATED IN GROUPS. MANUVERS AROUND INDEPENDENTLY - ATTENDS TO OWN NEEDS - GOOD APPETITE COMPLETION OF MEALS AT 75 OR MORE PERCENT. WILL CONTINUE TO MONITOR PATIENT FOR SAFEY, BEHAVORAL CHANGES AND ANY CONCERNS AND ADDRESS NEEDED.
--- NOTE | 2020-10-21 14:38 | NUR ---
LINDA met with patient, patient reported she was doing ok on the unit. She reported she came in because she ran out of her medication. Patient reported she is not HI/SI. She stated she feels well enough to return home. She stated she has many supports in place. Patient reported she is prepared for dischage and her medication has been sent to the pharmacy of her choice.
[2020-10-21 19:07] VITALS: BP 97/44
[2020-10-22 04:44] VITALS: BP 97/44
--- NOTE | 2020-10-22 04:48 | NUR ---
Assumed care for pt at 1900. Pt up in day room. Pt calm, cooperative and pleasant. Pt compliant with medications and assessment. Pt BP retaken and higher and WNL. Pt takes meds whole w/thin liquids. Pt denies any pain. Pt denies depression, anxiety, A/V hallucinations and SI/HI. Pt is on 12 minute checks for safety. Will continue to monitor for any changes in mood and/or behavior.
[2020-10-22 05:06] LABS: GLYCOHEMOGLOBIN (HGB A1C) 8.2 % (4.8-5.6)
[2020-10-22 05:39] LABS: CALCIUM 9.1 mg/dL (8.5-10.1); CREATININE 1.8 mg/dL (0.6-1.0); POTASSIUM 4.2 mmol/L (3.5-5.1)
[2020-10-22 08:37] VITALS: BP 108/62
[2020-10-22 11:19] VITALS: BP 125/72
--- NOTE | 2020-10-22 13:20 | NUR ---
1315 RESUMMED CARE FROM OVERNIGHT SHIFT THIS AM, PATIENT IN DAY ROOM QUIET WAITING ON BREAKFAST. PATIENT ATE BREAKFAST TOOK MEDICATION WITHOUT INCIDENCE. PATIENT DENIES SI/HI/AH/VH AT PRESENT PATIENT HAD A LITTLE ANXIETY AT 1315 AND ASKED FOR APRAZALAM. I GAVE PATIENT THE MEDICATION PATIENT CALM COOPERATIVE STILL ISOLATES HERSELF. PATIENT DID PARTICIPATE IN GROUPS PATIENT ABDOMEN SOFT BOWEL SOUNDS PRESENT LUNGS CLEAR NO SKIN ISSUES. WILL CONTINUE TO MONITOR PATIENT FOR SAFETY AND BEHAVIORS.
--- NOTE | 2020-10-22 17:54 | NUR ---
LINDA was able to speak with Pt's casemanager, Rosalee Markham [phone]. LINDA updated Rosalee about Pt's recent admission. Rosalee reported that she was meeting with the Pt and Pt was participating in therapy. Rosalee was not aware that Pt had not been taking medications. LINDA inquired about hospital diversion with Yasmeen. Rosalee informed that Pt has been offered diffrent theraputic classes and more intense interventions however Pt has declined. Pt does not have medicaid and would have a copay and due to that opts out of certain services. Rosalee will continue to follow Pt after discharge. LINDA will continue to follow
--- NOTE | 2020-10-22 18:06 | NUR ---
LINDA met with Pt 1 on concerning plans at discharge. Pt stated she is still grieving and was attanding online groups through [employer]. Pt stated she was unable to case picker her medications due to the weather. When SW inquired about calling her foster care case manager. Pt reponded that she would do that in the future. Pt was very adamant about being discharged. Pt worried about paying her bills and rent on time. SW talked about guardianship with the Pt. Pt feels she is independent and can handle her affairs. SW encouraged Pt to utilize resources through [employer] concerning her medications and mental health. SW also informed that Pt going 10 days without medications can be an indication that Pt may struggle with caring for self also lack of utilization of vocational case manager services can also be and indication. Pt admitted that she made a mistake by not getting meds and assusred she would utilize her case manger for assistance. LINDA spoke to Pt about medicaid screening whil in the hospital. Pt agreed to complete a screening. LINDA sent and email to Melany Salmeron with med assist to request a screening be completed with Pt. LINDA will continue to follow.
[2020-10-22 19:03] VITALS: BP 138/75
[2020-10-23 01:47] VITALS: BP 138/75
[2020-10-23 02:06] LABS: GLYCOHEMOGLOBIN (HGB A1C) 8.2 % (4.8-5.6)
--- NOTE | 2020-10-23 02:06 | NUR ---
Assumed care for pt at 1900. Pt in dining room at start of shift watching tv. Pt is calm, cooperative, and pleasant. Pt is complaint with nursing assessment and medications. Pt takes medications whole. Pt denies having any pain. Pt denies depression, SI/HI. Stated the only anxiety I have is from being here and not being able to go pay my bills that are coming due. Pt last BM was on 10/22/20. Pt resting quietly in bed at this time, with eyes closed, and appears to be sleping. Pt is on 12 minute checks for safety. Will continue to monitor and documentent any changies
[2020-10-23 05:46] LABS: CALCIUM 9.7 mg/dL (8.5-10.1); CREATININE 1.2 mg/dL (0.6-1.0); POTASSIUM 4.2 mmol/L (3.5-5.1)
[2020-10-23 09:18] VITALS: BP 112/57
--- NOTE | 2020-10-23 11:26 | NUR ---
Alert and orientated X4. Denies SI/HI. Calm, cooperative and cooperative. Breath sounds clear. Reg HR auscultated. Color pink with brisk capillary refill and palpable peripheral pulses. Independent with voiding. Active bowel sounds over soft, rounded abdomen. Ambulates with regular, steady gait. Participating in group this AM. Currently watching TV with peers without s/o distress.
[2020-10-23 19:20] VITALS: BP 130/67
[2020-10-24 00:31] VITALS: BP 130/67
--- NOTE | 2020-10-24 04:45 | NUR ---
Assumed care on 10/23/20 @ 1900, seated in the day room at a table, socializing with peers and watching TV. A&Ox4, Denies SI/HI/AH/VH. Lung CTA bilat, HRRR, S1S2 noted, ABD N x 4Q. Reports BM yesterday. Reports that she is in the hospital to have her medications refilled, that the weather kept her from refilling her meds and that is why she is here. She says that she wants to leave to be able to pay her rent and bills on time. Retired @ HS and has been sleeping quietly with the bed in low position. Will continue to monitor for safety and comfort as per unit protocol.
--- NOTE | 2020-10-24 04:51 | NUR ---
Alprazolam 1mg provided for anxiety and sleep @ 21:30, Acetaminophen 650 provided for general discomfort @ 21:30.
[2020-10-24 10:25] VITALS: BP 117/65
[2020-10-24 11:21] VITALS: BP 117/65
--- NOTE | 2020-10-24 12:44 | NUR ---
PATIENT CARE ASSUMED AT 0700 - QUIET AND AGREEABLE. DOES NOT ENGAGE WITH PEERS AND STAYS TO SELF. DENIES S/I OR H/I - NO AUDITORY OR VISUAL HALLUCINATIONS WHEN QUESTIONS AND NONE OBSERVED BY STAFF. PATIENT STATES READY TO GO HOME. CONCERNED WITH FALLING BEHIND ON HER BILLS. PATIENT STATED MEDICATIONS HAVE BEEN ADJUSTED AND COMMITTED TO COMPLIANCE. AMBULATORY AND MAKES NEEDS KNOWN. COMPLIANT WITH MEDICATIONS AND APPETITE GOOD WITH COMPLETION OF 75 PERCENT OR MORE OF HER MEALS.
[2020-10-24] MEDS ORDERED: WELLBUTRIN XL150 MG PO (15:49)
[2020-10-24] MEDS ORDERED: ZYPREXA 5 MG TAB5 M2 PO (15:51)
[2020-10-24] MEDS ORDERED: XANAX1 MG PO (15:53)
[2020-10-24 19:26] VITALS: BP 143/79
--- NOTE | 2020-10-25 03:13 | NUR ---
Assumed care of pt at 1900. Pt sitting in dining room at start of shift watching tv until going to room for bed. Pt is A&O x 4. Pt has been calm, cooperative and pleasant. Pt is medication compliant and takes medications whole with water. Pt denies any pain at time of assessment. Pt is able to make needs known and is independent with ADLs. Pt is on q12 min checks for safety. Pt is scheduled to discharge back to home on either 10/25/20 or 10/26/20. Continue to monitor pt for any changes.
[2020-10-25 09:26] VITALS: BP 108/63
[2020-10-25 12:18] VITALS: BP 108/63
--- NOTE | 2020-10-25 12:57 | NUR ---
SW met with Pt concerning discharge today. Pt is aware of her up coming appointments with pshychiatrist and therapist. SW was also able to speak with the Pt's case management, Rosalee, concerning discharge. Pt will discharge home with continued outpt psychiatric, outpt therapy, and case management. Follow up apptointments are as followed: Psychiatrist: Dr. Charlie Bonilla 10/29/2020 @9:30am Therapist: Cricket Delgado) 10/31/2020 @10am
[2020-10-25 13:50] VITALS: BP 108/63
--- NOTE | 2020-10-25 14:14 | NUR ---
Assumed pt care at 0700. pt was alert and oriented x4. assessments completed and VSS. pt took medication whole without difficulty. pt ambulates with a steady gait. pt denies si/hi. pt denies pain. PRN xanax 1mg was given at 1235 for anxiety. pt was D/C with her belongings at 1400. credit underwriter accompanied pt to [employer] to roller picker pt belonging at the security. pt was transported by taxi (ri).
== END 2020-10-25 14:00 | disposition home or self-care (01) | DRG 885 ==
LOC: SBH
PROVIDERS: Hospitalist; Internal Medicine; ADMIT Psychiatry & Neurology Psychiatry; ATTEND Psychiatry & Neurology Psychiatry
DX: F31.9 Bipolar disorder, unspecified (principal); N17.9 Acute kidney failure, unspecified; E78.00 Pure hypercholesterolemia, unspecified; F29 Unspecified psychosis not due to a substance or known physiological condition; E53.8 Deficiency of other specified B group vitamins; F22 Delusional disorders; E11.22 Type 2 diabetes mellitus with diabetic chronic kidney disease; I12.9 Hypertensive chronic kidney disease with stage 1 through stage 4 chronic kidney disease, or unspecified chronic kidney disease; E66.3 Overweight; N18.30 Chronic kidney disease, stage 3 unspecified; Z68.27 Body mass index [BMI] 27.0-27.9, adult; Z88.0 Allergy status to penicillin; Z88.6 Allergy status to analgesic agent; Z91.041 Radiographic dye allergy status; Z87.891 Personal history of nicotine dependence; Z82.49 Family history of ischemic heart disease and other diseases of the circulatory system; Z83.3 Family history of diabetes mellitus; Z90.49 Acquired absence of other specified parts of digestive tract
CPT/HCPCS: 10880

== ENCOUNTER 2021-10-03 14:52 | Emergency (ER) | payer OTHER ==
[~2021-10-03] VITALS: Ht 154.9 cm; Wt 68.0 kg
--- NOTE | ~2021-10-03 | EMS ---
[address] [address] EMS Patient Care Report Name: TRENT ARZATE Room #: DEP BIJAL Miller#: [id number] Admission: 10/03/21 Attend Phys: Discharge: 10/03/21 Date of : 55 Report #: [id number] THIS REPORT FOR: //name// Report Transmitted: 10/08/2021 15:26 EMS Care Summary [place], [place] Incident [id number] @ 10/03/2021 14:18 Incident Location [address] [place], [place] [id number] Patient TRENT ARZATE Female, 66 Years 1955 Patient Address [address] [place], [place] [id number] Patient History Hypertension (HTN),Anxiety Disorder (Panic Attacks),Bipolar II Disorder,Schizophrenia,Type 2 Diabetes, Patient Allergies Morphine,Intravenous Dye,Peanut allergy, Patient Medications Unknown, Chief Complaint suicidal ideation Disposition Transported No Lights/[place] Dispatch Reason Psychiatric Problem/Abnormal Behavior/Suicide Attempt Transported To [facility] Narrative M36 dispatched on a suicide attempt. M36 arrived to apartment building to find [address] [address] EMS Patient Care Report Name: TRENT ARZATE Room #: DEP Paul#: [id number] Admission: 10/03/21 Attend Phys: Discharge: 10/03/21 Date of : 55 Report #: [id number] PT on second floor with PD. PT found seated on couch inside apartment. No gross trauma or bleeding noted. PT stated suicidal ideation as chief complaint. PT stated "I lost my sister and brother in law recently." PT stated "I haven't slept for four days." PT stated "I quit taking my sleeping meds because it made me feel paralyzed." PT stated "my anxiety and panic attacks have been real bad." PT stated she was unsure of when she last took her medications. PT stated she could not find her medication for her panic attacks. PT calm and cooperative with EMS. PT walked to ambulance and sat on bench. PT secured with seatbelts. PT wearing mask prior to getting in ambulance. PT vitals monitored during transport including blood glucose. PT report given. PT walked into hospital with EMS. PT sat on hospital bed without assistance. PT care and belongings transferred to ER staff at [facility] without incident. M36 placed back in service. Initial Vitals @14:33P: 120,R: 18,BP: 166/92,Pain: 8/10,GCS: 15,Glucose: 324,SpO2: 95,Revised Trauma: 12, @14:39P: 114,R: 20,BP: 141/69,Pain: 8/10,GCS: 15,CO: 4,SpO2: 96,Revised Trauma: 12, Assessments @14:26MENTAL:Person Oriented,Place Oriented,Event Oriented,Time Oriented,SKIN:HEENT:Head/Face: Other,LUNG SOUNDS:ABDOMEN:PELVIS//GI:EXTREMITIES:PULSE:Radial: 2+ Normal,NEURO: Impression Suicidal Ideation Procedures @14:26 ALS Assessment Response: UnchangedSucceeded Timeline 14:17,Call Received 14:17,Dispatch Notified 14:18,Dispatched 14:18,En Route 14:22,On Scene 14:24,At Patient 14:26,ALS Assessment,Response: UnchangedSucceeded, 14:33,BP: 166/92 M,PULSE: 120,RR: 18 R,SPO2: 95 Ox,ETCO2: ,B,PAIN: 8,GCS: 15, 14:37,Depart Scene 14:39,BP: 141/69 M,PULSE: 114,RR: 20 R,SPO2: 96 Ox,ETCO2: ,BG: ,PAIN: 8,GCS: 15, [facility] [address] [place] [address] EMS Patient Care Report Name: TRENT ARZATE Room #: DEP BIJAL Miller#: [id number] Admission: 10/03/21 Attend Phys: Discharge: 10/03/21 Date of : 55 Report #: [id number] 14:49,At Destination 15:06,Call Closed Disclaimer v1.1 Copyright 2021 [employer] This EMS Care Summary contains data elements from the applicable legal record (which may be displayed differently). It is designed to provide pertinent information for the following purposes: continuity of care, clinical quality, and state data reporting. The complete legal record is available to ED staff and administrators of the receiving hospital in [facility]'s Patient Tracker. All data is provided "as is."
--- NOTE | ~2021-10-03 | EMS ---
[address] [address] EMS Patient Care Report Name: TRENT ARZATE Room #: PRE Paul#: [id number] Admission: Attend Phys: Discharge: Date of : 55 Report #: [id number] THIS REPORT FOR: //name// Report Transmitted: 10/03/2021 14:39 EMS Care Summary [place], [place] Incident [id number] @ 10/03/2021 14:18 Incident Location [address] [place], [place] [id number] Patient TRENT ARZATE Female, 66 Years 1955 Patient Address [address] [place] [address] Patient History Hypertension (HTN),Anxiety Disorder (Panic Attacks),Bipolar II Disorder,Schizophrenia,Type 2 Diabetes, Patient Allergies Morphine,Intravenous Dye,Peanut allergy, Patient Medications Unknown, Chief Complaint suicidal ideation Disposition Transported No Lights/[place] Dispatch Reason Psychiatric Problem/Abnormal Behavior/Suicide Attempt Transported To [facility] Narrative M36 dispatched on a suicide attempt. M36 arrived to apartment building to find [address] [address] EMS Patient Care Report Name: TRENT ARZATE Room #: PRE ER M.R.#: [id number] Admission: Attend Phys: Discharge: Date of : 55 Report #: [id number] PT on second floor with PD. PT found seated on couch inside apartment. No gross trauma or bleeding noted. PT stated suicidal ideation as chief complaint. PT stated "I lost my sister and brother in law recently." PT stated "I haven't slept for four days." PT stated "I quit taking my sleeping meds because it made me feel paralyzed." PT stated "my anxiety and panic attacks have been real bad." PT stated she was unsure of when she last took her medications. PT stated she could not find her medication for her panic attacks. PT calm and cooperative with EMS. PT walked to ambulance and sat on bench. PT secured with seatbelts. PT wearing mask prior to getting in ambulance. PT vitals monitored during transport including blood glucose. PT report given. PT walked into hospital with EMS. PT sat on hospital bed without assistance. PT care and belongings transferred to [facility]. M36 placed back in service. Initial Vitals @14:33P: 120,R: 18,BP: 166/92,Pain: 8/10,GCS: 15,Glucose: 324,SpO2: 95,Revised Trauma: 12, @14:39P: 114,R: 20,BP: 141/69,Pain: 8/10,GCS: 15,CO: 4,SpO2: 96,Revised Trauma: 12, Assessments @14:26MENTAL:Person Oriented,Place Oriented,Event Oriented,Time Oriented,SKIN:HEENT:Head/Face: Other,LUNG SOUNDS:ABDOMEN:PELVIS//GI:EXTREMITIES:PULSE:Radial: 2+ Normal,NEURO: Impression Suicidal Ideation Procedures @14:26 ALS Assessment Response: UnchangedSucceeded Timeline 14:17,Call Received 14:17,Dispatch Notified 14:18,Dispatched 14:18,En Route 14:22,On Scene 14:24,At Patient 14:26,ALS Assessment,Response: UnchangedSucceeded, 14:33,BP: 166/92 M,PULSE: 120,RR: 18 R,SPO2: 95 Ox,ETCO2: ,B,PAIN: 8,GCS: 15, 14:37,Depart Scene 14:39,BP: 141/69 M,PULSE: 114,RR: 20 R,SPO2: 96 Ox,ETCO2: ,BG: ,PAIN: 8,GCS: 15, [facility] [address] [place] [address] EMS Patient Care Report Name: TRENT ARZATE Room #: [facility] M.R.#: [id number] Admission: Attend Phys: Discharge: Date of : 55 Report #: [id number] 14:49,At Destination 15:06,Call Closed Disclaimer v1.1 Copyright 2021 [employer] This EMS Care Summary contains data elements from the applicable legal record (which may be displayed differently). It is designed to provide pertinent information for the following purposes: continuity of care, clinical quality, and state data reporting. The complete legal record is available to ED staff and administrators of the receiving hospital in [facility]'s Patient Tracker. All data is provided "as is."
[~2021-10-03 14:52] MED LIST changes: +WELLBUTRIN XL150 MG PO
[2021-10-03 15:27] LABS: HEMATOCRIT 43.5 % (37.0-47.0); HEMOGLOBIN 15.3 gm/dL (12.0-15.0); MCH 30.4 pg (26.0-34.0); MCHC 35.3 g/dL (28.0-37.0); MCV 86.2 fL (80.0-100.0); RBC 5.04 mil/uL (4.20-5.00); RDW 14.7 % (10.5-14.5); WBC 6.9 thou/uL (4.0-11.0)
[2021-10-03 15:36] LABS: ANION GAP 10 mmol/L (7-16); BUN 23 mg/dL (7-18); CALCIUM 9.2 mg/dL (8.5-10.1); CHLORIDE 97 mmol/L (98-107); CO2 25 mmol/L (21-32); CREATININE 0.9 mg/dL (0.6-1.0); GLUCOSE 348 mg/dL (74-106); POTASSIUM 4.3 mmol/L (3.5-5.1); SODIUM 132 mmol/L (136-145)
[2021-10-03 15:42] LABS: ALBUMIN 3.7 g/dL (3.4-5.0); LIPASE 182 U/L (73-393); SALICYLATE < 2.8 mg/dL (2.8-20.0); TOTAL BILIRUBIN 0.5 mg/dL (0.2-1.0); TOTAL PROTEIN 7.5 g/dL (6.4-8.2)
[2021-10-03 15:58] LABS: SGOT 5 U/L (15-37); SGPT < 6 U/L (14-59)
--- NOTE | 2021-10-03 16:01 | EKG ---
[place] [address] [facility] [place] [address] ELECTROCARDIOGRAM REPORT Name: HUEYTRENT Room #: [facility]#: [id number] Admission: 10/03/21 Attend Phys: Discharge: Date of : 55 Report #: [id number] [facility] ED Test Date: 2021-10-03 Test Time: 15:11:21 Pat Name: TRENT ARZATE Department: Room: Gender: F Copra Processor: : 1955 Requested By: Savita Carter Order Number: [id number] MD: Telly Sterling Measurements Intervals [place] Rate: 103 P: 66 OR: 164 QRS: -37 QRSD: 86 T: 48 QT: 363 QTc: 475 Interpretive Statements Sinus tachycardia Left axis deviation Abnormal R-wave progression, late transition Borderline prolonged QT interval Baseline wander in lead(s) V1 Compared to ECG 10/18/2020 11:13:43 ST (T wave) deviation now present Sinus rhythm no longer present Electronically Signed On 10-03-2021 16:01:12 TICKET PULLER by Telly Sterling [email or web address] <ELECTRONICALLY SIGNED> By: Telly Sterling MD, [facility] 10/03/21 1601 1511 151 Telly Sterling MD, [facility] /EPI
[2021-10-03 20:58] VITALS: BP 148/72
[2021-10-04] MEDS ORDERED: NYSTATIN100000 UNI SW&SWALLOW (07:43)
[2021-10-04] MEDS ORDERED: METFORMIN HCL500 M3 PO (07:50)
[2021-10-04] MEDS ORDERED: HYDROCHLOROTH12.5 M2 PO (07:56)
[2021-10-04] MEDS ORDERED: LOSARTAN POTAS100 MG PO (07:56)
== END 2021-10-03 22:42 ==
LOC: ER 14:52
PROVIDERS: Student in an Organized Health Care Education/Training Program
DX: R45.851 Suicidal ideations (principal); Z20.822 Contact with and (suspected) exposure to COVID-19; I10 Essential (primary) hypertension; E11.9 Type 2 diabetes mellitus without complications; E78.00 Pure hypercholesterolemia, unspecified; F41.9 Anxiety disorder, unspecified; F32.9 Major depressive disorder, single episode, unspecified; F17.210 Nicotine dependence, cigarettes, uncomplicated; Z90.49 Acquired absence of other specified parts of digestive tract; Z98.890 Other specified postprocedural states; Z79.899 Other long term (current) drug therapy; Z79.84 Long term (current) use of oral hypoglycemic drugs; Z79.891 Long term (current) use of opiate analgesic; Z91.041 Radiographic dye allergy status; Z88.5 Allergy status to narcotic agent; Z88.0 Allergy status to penicillin

== ENCOUNTER 2021-10-03 16:56 | Inpatient (IN) | payer OTHER ==
[~2021-10-03] VITALS: Ht 154.9 cm; Wt 74.8 kg
[2021-10-03 21:58] VITALS: BP 158/74
--- NOTE | 2021-10-03 21:58 | NUR ---
66 YEAR OLD FEMALE ARRIVES TO FLOOR FROM ER AT APPROX 2039 WITH REPORTED SI. COOPERATIVE AND PLEASANT DURING ADMIT INTERVIEW. ALERT AND ORIENTED X3. DENIES CURRENT SI AND MINIMIZES RECENT THOUGHTS STATING "I GOT TO WATCHING THESE CELEBRITIES KIDS ON LINE WHO COMMITTED SUICIDE-IT WAS STUPID-I CALLED MY MARKETING COMMUNICATIONS ASSOCIATE AND THEY TOLD ME TO COME HERE" DENIES PLAN/INTENT. DOES REPORT INCREASED DEPRESSION OVER PAST FEW DAYS AND STATES STOPPED TAKING MEDS APPROX 4 DAYS AGO FOR "NO GOOD REASON" STATES IT IS NEARING THE ANNIVERSARY OF SEVERAL FAMILY MEMBERS DEATHS?(BROTHER,SISTER,NEPHEW) CONSTRICTED AFFECT THROUOUT INTERVIEW. DENIES PAIN. NO NOTED OR REPORT PSYCHOSIS OR ACUTE ANXIETY. VS /HT/WT OBTAINED. CONSENTS OBTAINED. BELONGINGS INVENTORIED AND VALUABLES SENT TO SAFE. OFFERED AND ACCEPTED FOOD/FLUIDS. ORIENTED TO UNIT. GAIT STEADY WITHOUT ASSISTIVE DEVICES.
[2021-10-04 06:19] LABS: CHOLESTEROL 164 mg/dL (<200); HDL CHOLESTEROL 27 mg/dL (>40); TC:HDL 6.1 Ratio (Not establshd); TRIGLYCERIDE 779 mg/dL (<150); VLDL 156 mg/dL (<40)
[2021-10-04] MEDS ORDERED: NYSTATIN100000 UNI SW&SWALLOW (07:43)
[2021-10-04] MEDS ORDERED: METFORMIN HCL500 M3 PO (07:50)
[2021-10-04] MEDS ORDERED: LOSARTAN POTAS100 MG PO (07:56)
[2021-10-04] MEDS ORDERED: HYDROCHLOROTH12.5 M2 PO (07:56)
--- NOTE | 2021-10-04 08:50 | NUR ---
New admit to [facility], admit with MDD. Hx diabetes, last A1C 1 yr ago 8.2. Pt has been pt on [facility] in past; SI, depression, bipolar, schizophrenia, DM. At one point, had significant wt loss in 2020, but now wts average 150-165 lb. Accucheck 354, will add carb control to diet order, otherwise presents low nutrition risk at this time.
[2021-10-04 10:22] VITALS: BP 119/70
--- NOTE | 2021-10-04 16:42 | NUR ---
Patient is alert and oriented x4, xanax given prn for anxiety. Patient is calm, cooperative, and pleasant. She walking without walker or assisting device. Void per toilet, had a bm this morning. Good appetite, however, blood sugar is on the high side. Hospitalist added insulin and PO med for diabetic. Patient sat in the dining room most of the day, watching TV, eating in the dinning room. No pain.
--- NOTE | 2021-10-04 17:32 | NUR ---
LINDA and Dr. Acosta met with the Pt. Pt reported not taking her medications for the past 4 days. Pt stated that one of her medication "paralysed me for about 45 mins when I woke up one morning". Pt reported working with her psychiatrist concerning the matter. Pt reported recieving services through [employer]. Pt's pillowcase sewer is Rosalee Markham. Pt reported the recent of a nephew and the anniversary of other family memebers deaths as a cause for her SI. Pt is open to medication changes and adjustments. Dr. Kent discussed geodone benefits and side effects with the Pt. Pt was concerned about discharging Thursday due to meals on wheels delivery to her. Pt reported they only come once a month. SW discussed options to get the delivery but Pt was not in agreement to the options. Pt stated she is willing to stay and wont worry about the delivery. Pt had no other questions or concerns at this time. LINDA will continue to follow.
[2021-10-04 19:46] VITALS: BP 119/71
--- NOTE | 2021-10-04 22:06 | NUR ---
At onset of ways operator pt was sitting in day room watching TV and drinking water. This shift pt was alert and oriented x3. Pt was compliant with evening glargine insulin and nystatin mouth rinse. Pt spent free time in the evening watching TV and being social with peers. Pt spoke with RN about her anxiety being very high because she believes her mother is in the hospital and her sister is keeping this information from her. Pt had several complaints about her medication. Pt stated she does not want her xanax decreased. Pt stated she needs medication for sleep and does not know why she gets Geodon at dinner instead of bed time. Pt also mentioned that she takes paxil. Pt stated when she discharges she does not want her home medication to be changed. Pt denied SI, HI and AVH; only endorsing high anxiety. Pt is low fall risk. Will continue to monitor.
[2021-10-05 07:12] LABS: GLYCOHEMOGLOBIN (HGB A1C) 11.4 % (4.8-5.6)
[2021-10-05 08:00] VITALS: BP 124/65
[2021-10-05 09:16] VITALS: BP 124/65
--- NOTE | 2021-10-05 09:47 | H ---
[facility] [place] [address] HISTORY AND PHYSICAL Name: TRENT ARZATE Room #: 517-A ADM IN M.R.#: [id number] Admission: 10/03/21 Attend Phys: Gianfranco Acosta DO Discharge: Date of : 55 Report #: [id number] THIS REPORT FOR: cc: DENIA LUI MD, TRICIA MD Kerstein,Gianfranco Kaufman DO ~ DATE OF SERVICE: 10/04/2021 INPATIENT PSYCHIATRIC EVALUATION ATTENDING PSYCHIATRIST: Gianfranco Acosta DO [employer] INSTRUMENT REPAIRER: Lucrecia Louis APRN, and Shree Raymond MD and his hospitalist team. REASON FOR ADMISSION: Suicidal ideation reported. SOURCES OF INFORMATION: Interview with the patient, Emergency Room chart notes, records from multiple past admissions here at [facility] including on the Geriatric Psychiatry. CHIEF COMPLAINT: "I want to go home." HISTORY OF PRESENT ILLNESS: This is a 66-year-old black female known to me from previous admissions. Interestingly, she was last admitted in 10/2020 and this author was then on leave of absence due to COVID, but I did have her approximately 2 years ago. This does seem to be somewhat of an anniversary phenomenon, as she has had a number of deaths and tragedies in her family this time of year and she tells me several months ago, her nephew or son of COVID, but that had a very tragic effect on her. The patient was brought to the Emergency Room yesterday. She was referred by her corrections caseworker. Apparently, she had a in the family about 5 days ago. She is struggling with grief. She has not slept in 4 days. In the past few days, she has alternated between feeling depressed and feeling "on top of the world." Last night, she states she got into the social I guess it means social media and watched videos about young people committing suicide. She said that this got her thinking that she should also commit suicide. She had brief thoughts of jumping off her balcony. She lives alone, which is true. She called her therapist this morning when she began to experience those thoughts, prompting her therapist to call EMS, so she was brought to the ER by EMS. She also endorses intermittent visual hallucinations over the past few days, but she attributes no sleep. She is currently worried about her blood sugar, which is at 348. She states she is normally in the 140s and normally takes metformin. She has not been taking any medications for the last 4 days. She described to this author that they were not working or causing her big problems. She denied nausea, vomiting, chest pain, shortness of air, urinary symptoms, pain, homicidal ideation. [facility] [address] [place] [address] HISTORY AND PHYSICAL Name: TRENT ARZATE Room #: 517-A ADM IN M.R.#: [id number] Admission: 10/03/21 Attend Phys: Gianfranco Acosta DO Discharge: Date of : 55 Report #: [id number] PAST MEDICAL HISTORY: Includes uncontrolled diabetes mellitus, hypertension, hyperlipidemia. PAST SURGICAL HISTORY: Includes appendectomy, breast reduction. HOME MEDICATIONS: Include bupropion 150 mg oral daily, which she refused this morning, I have discontinued it; olanzapine 15 mg oral at bedtime; alprazolam 1 mg p.o. t.i.d. p.r.n.; 500 mg oral b.i.d.; lisinopril 40 mg daily; atorvastatin 20 mg p.o. daily. ALLERGIES: CONTRAST DYE, MORPHINE, PENICILLINS. SOCIAL HISTORY: She does smoke cigarettes, I do not have an exact pack-year history. No alcohol. No recreational drugs. REVIEW OF SYSTEMS: A 14-point review of systems was done in the ER and negative. This morning, the patient reported dizziness, but her blood sugar was 450, weight is 74.843 kilograms. There was an electrocardiogram done in the Emergency Room. Interval rate 103, DC interval 164 milliseconds, QT 362 milliseconds, QTc 475 milliseconds. Read as by Dr. Sterling, sinus tachycardia, left axis deviation. Labs from ER are as follows: White count 6.9, H and H 15.3 and 43.5, platelet count 196. Chemistry: Sodium 132, potassium 4.3, chloride 97, bicarbonate 25, anion gap 10, BUN 23, creatinine 0.9, estimated GFR 76, glucose ranging anywhere from 298-450. A1c is high at 8.2. Calcium 9.2, phosphorus 3.2, magnesium 1.8, total bilirubin 0.5, direct bilirubin 0.1, AST 5, ALT 6, alkaline phosphatase 124, total protein 7.5, albumin 3.7, triglycerides 779, cholesterol 164, HDL 27. Lipase 182. B12 of 320. TSH 0.753. Urinalysis showed 2+ protein, trace blood, 4-10 squamous cells, few bacteria. Culture was not triggered. Toxicology was negative including negative for alcohol, acetaminophen and salicylate. COVID-19 PCR was not detected on 10/03/2021. PHYSICAL EXAMINATION: VITAL SIGNS: This morning, temperature 36.4, pulse 89, respirations 18, BP 110/70, O2 sat 91%. Blood sugar did shoot up from 354 this morning to 450 just before lunch and 298 at 1430 this afternoon. MUSCULOSKELETAL: Normal gait and station. Fair dress, appearing her stated age. MENTAL STATUS EXAMINATION: Well-developed, age-appearing black female. Attention fair. Concentration fair. Speech normal rhythm, tone. Thought Process: Linear and goal directed. Thought content focused on being discharged [facility] [address] [place] [address] HISTORY AND PHYSICAL Name: TRENT ARZATE Room #: 517-A [facility] IN .R.#: [id number] Admission: 10/03/21 Attend Phys: Gianfranco Acosta DO Discharge: Date of : 55 Report #: [id number] on Thursday as she is getting her Meals on Wheels delivery. Denied suicidal or homicidal ideations today. Some hopelessness, helplessness of her recent tragedies in family. Memory not formally tested. Insight and judgment limited. Fund of knowledge, no greater than average. Had some other information from previous encounter with her. BIPOLAR DISORDER HISTORY: She has called herself a bipolar schizophrenic. Her outside psychiatrist is Seamus Bonilla at [facility]. The patient endorses significant trauma history dating back to adolescence. SOCIAL HISTORY: A 12th grade education, did not graduate. She is on social security disability due to her mental health. In 2019, she was smoking a half pack per day, has declined smoking cessation. The patient has never been , no children. No known DPOA. FORMULATION: A 66-year-old black female being admitted for suicidal ideation, signs of severe persistent mental illness, referral by corrections caseworker. STRENGTHS: She is insured, has a place to live, has a psychiatrist and corrections caseworker. WEAKNESSES: Limited family support, limited coping skills. DIAGNOSES: At this time, bipolar 1 disorder, depressed, recurrent episode, severe with questionable psychotic features. MEDICAL COMORBIDITIES: Include under controlled diabetes mellitus, hypertension, hyperlipidemia, tobacco use disorder. PLAN: Admitted voluntarily to [facility] to evaluate, stabilize, obtain collateral. With regard to her medications, the patient did not want to be continued on olanzapine, so I started her on geodon 20 mg bid with meals . Hospitalist has added vitamin B12 100 mcg oral daily. They have added Lantus 10 units at bedtime, nystatin swish and swallow for oral Katy. Sliding scale. I decreased her alprazolam to 0.5 mg oral 3 times a day p.r.n. for anxiety, lisinopril 40 mg daily. She has been started on fenofibrate 54 mg daily for hypertriglyceridemia, famotidine 20 mg oral daily for GERD. I discontinued her bupropion due to her refusing it and questionable benefit in this situation. She is on atorvastatin 20 mg daily for hyperlipidemia. The patient is a FULL CODE. ESTIMATED LENGTH OF STAY: 5-[address] [place] [address] HISTORY AND PHYSICAL Name: TRENT ARZATE Room #: 517-A ADM IN M.R.#: [id number] Admission: 10/03/21 Attend Phys: Gianfranco Acosta DO Discharge: Date of : 55 Report #: [id number] Time spent on this case is at least 45 minutes. <ELECTRONICALLY SIGNED> By: Gianfranco Acosta DO 10/05/21 0947 1353 1508 Gianfranco Acosta DO /nt
--- NOTE | 2021-10-05 11:52 | NUR ---
RESUMMED CARE FROM OVERNIGHT SHIFT THIS AM, PATIENT SITTING IN DAY ROOM QUIET. PATIENT ALERT ORIENTED TIMES 4 PATIENT HAS ANXIETY WHICH SHE RATES AT ABOUT A 6. PATIENT DENIES SI/HI/AH/VH AT PRESENT; PATIENT ATE BREAKFAST TOOK MEDICATION WITHOUT INCIDENCE. PATIENT WANTED TO TALK TO DR GIPSON ABOUT DECREASING HER XANAX. SHE DID TALK WITH DR GIPSON AND HE TOLD HER HE STARTED HER ON GEODON AND IS TAPERING UP. SHE WANTS TO DISCHARGE ON THURSDAY BECAUSE SHE HAS TO TAKE CARE OF BILLS. PATIENTS ABDOMEN SOFT BOWEL SOUNDS PRESENT PATIENT LUNGS CLEAR. WILL CONTINUE TO MONITOR PATIENT FOR SAFETY AND BEHAVIORS.
[2021-10-05 20:03] VITALS: BP 113/63
--- NOTE | 2021-10-05 23:59 | NUR ---
At onset of night filler pt was sitting in day room watching TV. This shift pt was alert and oriented x4. Pt was compliant with medication and vital signs. Again, pt's main concern is that her medications stay the same when she discharges. Pt is not happy with her med changes this hospitalization. Pt was minimally social with peers. Affect was constricted. Pt was able to make her needs known to staff. Up ad sarahi and independent with ADLs. Pt stated she is going to discharge Thursday and states she is ready. Pt denied SI, HI and AVH. Only endorsed anxiety; requested xanax, administered at 2034. Pt is low fall risk. Will continue to monitor.
[2021-10-06 07:30] VITALS: BP 110/58
--- NOTE | 2021-10-06 14:25 | NUR ---
LINDA met with Pt at Pt's request. Pt reported wanting to discharge on Thursday. Pt also stated she did not want her medications changed. LINDA asked if Pt had spoken with Dr. Kent about her medications. Pt confirmed she had. Pt was informed that her A1C was 11.4 and the concerns were discussed. Pt admitted that she is not eating well and her PCP wanted to start her on insulin. However Pt expressed not being able to afford insulin. Pt recognined that poor food choices is an issues she has struggled with. Pt stated she would like to follow up with her PCP on the matter. LINDA informed Dr. Acosta of the Pt's request. Dr. Acosta agreed to the discharge. Pt will d/c 10/07/2021 @ 1300. Pt will be transported via [facility]
--- NOTE | 2021-10-06 15:20 | NUR ---
PT ALERT AND ORIENTED TIMES FOUR WITH FLAT AFFECT. VSS. PT DENIES SI/HI/AH/VH/PAIN/SOA. PT DID C/O ANXIETY PRN MEDICATIONS GIVEN WITH GOOD RELEIF. PT TOLERATES MEDS AND MEALS. PT INTERACTS WELL WITH AT STAFF AND PEERS PT ATTENDED GROUPS. PLANS TO DISCHARGE HOME TOMORROW.
[2021-10-06 19:07] VITALS: BP 139/82
--- NOTE | 2021-10-07 05:23 | NUR ---
patient aox4 makes needs known.patient interacts well with peers. patient had a bright affect, good eye contact, fair grooming and hygiene.patient had mild anxiety prn xanax given per order. patient encouraged fluids.patient ambulates with steady gaits.patient in bed asleep at this time breathing regular and unlaboured.
[2021-10-07 09:03] VITALS: BP 131/78
[2021-10-07 09:38] VITALS: BP 131/78
--- NOTE | 2021-10-07 11:02 | NUR ---
The Pt has the following upcoming appointment: Dr. Adalberto Fontanez-PCP : 10/09/2021 @ 1030 Dr. Seamus Bonilla- Psychiatrist : 11/06/2021 @ 0915 Pt was informed of these appointments verbally and information was put in the discharge document
--- NOTE | 2021-10-07 11:40 | NUR ---
RESUMMED CARE FROM OVERNIGHT SHIFT THIS AM, PATIENT ALERT ORIENTED TIMES 4. PATIENT SITTING DAY ROOM QUIET PATIENT ATE BREAKFAST TOOK MEDICATION WITHOUT INCIDENCE. PATIENT DENIES SI/HI/AH/VH AT PRESENT; PATIENT DENIES DEPRESSION ANXIETY AT A 3. PATIENTS ABDOMEN SOFT BOWEL SOUNDS PRESENT, PATIENTS LUNGS CLEAR. PATIENT IS DISCHARGING TODAY TO HOME WITH BELONGINGS AND DISCHARGE INSTRUCTIONS. WILL CONTINUE TO MONITOR PATIENT FOR SAFETY AND BEHAVIORS.
[2021-10-07] MEDS ORDERED: FENOFIBRATE54 MG PO (12:09)
[2021-10-07] MEDS ORDERED: PEPCID20 MG PO (12:10)
[2021-10-07] MEDS ORDERED: ZIPRASIDONE HCL20 M1 PO (12:10)
[2021-10-07] MEDS ORDERED: TRADJENTA5 MG PO (12:11)
[2021-10-07] MEDS ORDERED: METFORMIN HCL500 MG PO (12:11)
[2021-10-07] MEDS ORDERED: B-12500 MCG PO (12:12)
[2021-10-07 12:25] VITALS: BP 131/78
--- NOTE | 2021-10-09 21:33 | D ---
[facility] [place] [address] DISCHARGE SUMMARY Name: TRENT ARZATE Room #: 517-A [facility] IN M.R.#: [id number] Admission: 10/03/21 Attend Phys: Gianfranco Acosta DO Discharge: 10/07/21 Date of : 55 Report #: [id number] THIS REPORT FOR: cc: DENIA LUI MD, TRICIA MD Kerstein,Gianfranco Kaufman DO ~ DATE OF SERVICE: 10/07/2021 INPATIENT PSYCHIATRIC DISCHARGE SUMMARY ATTENDING PSYCHIATRIST: Gianfranco Acosta DO LOAN REVIEW ANALYST: Steven Vázquez MD DISCHARGE DIAGNOSES: As follows: 1. Bipolar 1 disorder, most recent episode depressed, severe, improved. 2. Diabetes mellitus type 2, poor control with hemoglobin A1c of 11.4. The patient is suspected of having significant noncompliance and wanting to take up further measures with her primary care physician. 3. Thrush, has been on nystatin in hospital, again follow issue with primary care physician; hyperlipidemia; chronic tobacco use. I neglected to prescribe her Nicoderm patch. Hospice counseled her on cessation, but the patient is really in a pre-contemplation phase with that. The patient is discharging to her home. She has an apartment in the community. Aftercare is as follows: Dr. Adalberto Fontanez, primary care physician, appointment 10/09/2021 at 10:30. She has an appointment with her psychiatrist, Dr. Seamus Bonilla 11/06/2021 at 09:15. I did leave a voicemail for Dr. Bonilla and his [facility] offices regarding the medication changes we made with the patient to [place]og as well as her grossly uncontrolled diabetes mellitus. DIET: Diabetic, 1800-calorie diet. ACTIVITY LEVEL: As tolerated. No alcohol. No recreational drugs and certainly consideration for smoking cessation, given her high risk factors for cardiovascular and metabolic risk factors. LABORATORY DATA: Hematology this admission, highlights, white count 6.9, H and H 15.3 and 43.5, platelet count 196. Chemistries this admission, sodium 132, potassium 4.3, chloride 97, bicarbonate 25, anion gap 10, BUN 23, creatinine 0.9, estimated GFR 76; glucose, widely ranging A1c 11.4 as previously stated; calcium 9.2, AST 5, ALT 6, alkaline phosphatase 124, total protein 7.5, albumin 3.7, triglycerides high at 779. 54mg fenofibrate was started, HDL 27. B12 somewhat borderline low at 320. Lipase 182. TSH 0.753. Urinalysis: 2+ protein, trace blood, actually no glucose. Urine culture was not triggered. Toxicology this admission was grossly negative including salicylate, acetaminophen, and alcohol. COVID-19 PCR was not detected on 10/03 or 10/06. [address] [address] DISCHARGE SUMMARY Name: TRENT ARZATE Room #: 517-A [facility] IN ..#: [id number] Admission: 10/03/21 Attend Phys: Gianfranco Acosta, Discharge: 10/07/21 Date of : 55 Report #: [id number] DISCHARGE MEDICATIONS: Bupropion, olanzapine were discontinued this admission. She used to take atorvastatin 20 mg daily, losartan 100 mg oral daily, fenofibrate was started she is taking 54 mg daily, ziprasidone 40 mg oral twice a day at 0800 and 1700. It should be noted that I tried to get the patient to stay in the hospital longer so we could achieve 60 mg b.i.d., but she wanted to be discharged Thursday. Famotidine 20 mg oral daily for GERD, metformin 1000 mg oral twice daily for diabetes mellitus, Tradjenta 5 mg oral daily for diabetes mellitus, B12 500 mcg daily. Ideally, the patient would benefit from insulin treatment and much more closer glucose monitoring, but this has been deferred to her PCP per the patient's request and her wanting to discharge in short order. REASON FOR ADMISSION: A 66-year-old black female, known from previous admissions and they are generally time of year. 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 HOSPITAL COURSE: The patient was admitted to Geriatric Psychiatry Unit. There had been recent noncompliance with both her psychiatric medications and medications for diabetes. She did not feel olanzapine was working and I elected to switch her to Geodon, this was titrated to 40 mg twice a day. I had wanted the patient to stay in the hospital for several more days, she declined. A 12-lead EKG was done, last one was ventricular rate 103, QTc 475 milliseconds, MS interval 164 milliseconds. The patient's affect improved. She wanted to be discharged on Thursday because she was expecting [employer] Whe[employer] delivery. She was not suicidal or homicidal, not meeting involuntary criteria. VITAL SIGNS: Temperature 36.2, pulse 96, respirations 17, BP 131/78, O2 sat 91% on day of discharge. BMI was 31.2, weight 74.843 kg. PHYSICAL EXAMINATION: GENERAL: Well-developed, mildly obese black female, referred to us. MENTAL STATUS EXAMINATION: Well-developed, age-appearing black female. Attention and concentration fair. Speech normal in rate. Thought process: Linear and goal directed. Thought content: Focused on discharge. Denied suicidal or homicidal ideation. Denied auditory or visual type hallucinations. Denied helplessness or hopelessness. Mood and affect were okay, constricted, congruent. Memory not formally tested. Insight and judgment were fair to limited. Fund of knowledge, no greater than average. Prognosis for this patient is guarded given fairly persistent mental illness, [facility] [address] [place] [address] DISCHARGE SUMMARY Name: TRENT ARZATE Room #: 517-A [facility] IN Paul#: [id number] Admission: 10/03/21 Attend Phys: Gianfranco Acosta DO Discharge: 10/07/21 Date of : 55 Report #: [id number] variable compliance and high metabolic cardiovascular risk factors including tobacco use and uncontrolled diabetes mellitus. <ELECTRONICALLY SIGNED> By: Gianfranco Acosta DO 10/09/21 [id number] Gianfranco Acosta DO /nt
== END 2021-10-07 15:30 | disposition home or self-care (01) | DRG 885 ==
LOC: SBH 16:56
PROVIDERS: Hospitalist; ADMIT Psychiatry & Neurology Psychiatry; ATTEND Psychiatry & Neurology Psychiatry
DX: F31.5 Bipolar disorder, current episode depressed, severe, with psychotic features (principal); R45.851 Suicidal ideations; B37.0 Candidal stomatitis; E11.9 Type 2 diabetes mellitus without complications; E78.5 Hyperlipidemia, unspecified; F17.210 Nicotine dependence, cigarettes, uncomplicated; T43.506A Underdosing of unspecified antipsychotics and neuroleptics, initial encounter; T38.3X6A Underdosing of insulin and oral hypoglycemic [antidiabetic] drugs, initial encounter; I10 Essential (primary) hypertension; F41.9 Anxiety disorder, unspecified; F43.10 Post-traumatic stress disorder, unspecified; Z20.822 Contact with and (suspected) exposure to COVID-19; Z28.21 Immunization not carried out because of patient refusal; Z83.1 Family history of other infectious and parasitic diseases; Z90.49 Acquired absence of other specified parts of digestive tract; Z79.899 Other long term (current) drug therapy; Z88.5 Allergy status to narcotic agent; Z88.0 Allergy status to penicillin; Z91.041 Radiographic dye allergy status; Z91.19 Patient's noncompliance with other medical treatment and regimen; Z71.6 Tobacco abuse counseling; Y92.89 Other specified places as the place of occurrence of the external cause; Z90.710 Acquired absence of both cervix and uterus
CPT/HCPCS: 10880